=== PATIENT | female | born 1955 | race African-American/Black ===

== ENCOUNTER → 2017-04-10 | Outpatient (CLI) | payer OTHER ==
--- NOTE | ~2017-04-10 | MY29 ---
[facility] A Service of [facility] RADIOLOGY TEXT RESULTS PATIENT: EMILEE GASTON LOCATION: [facility] : 57 UNIT #: [id number] AGE: [address]: ANN EDGAR APRN SEX: F ORDER DR: [id number] [facility] [address] [place], [place] [address] [id number] O MR#: [id number] Acc #: [id number] NAME: EMILEE GASTON : 1955 SEX: F STUDY DATE/TIME: 04/10/2017 8:34 UNIT: [facility] ROOM: STUDY DESCRIPTION: MY [facility] SCREENING W/ CAD BILAT Attending Physician: Ann Edgar Aprn Referring Physician: Ann Edgar Aprn Ordering Physician: Ann Edgar Aprn Primary Care Physician: Ann Edgar Aprn MEDICAL IMAGING REPORT This report is preliminary unless electronic signature is present EXAM Digital screening mammogram, 04/10/2017 HISTORY 61-year-old woman no risk elevation. Previous stereotactic-guided right breast biopsy. Annual screening. COMPARISON Mammograms date to 06/22/2009 with most recent 02/08/2016. FINDINGS Digital imaging of each breast was completed utilizing screening protocol. Review includes FDA-approved CAD device. Breast parenchyma is fatty replaced. Stereotactic biopsy marker stable 12 o'clock axis middle third right breast. Tubular opacity projecting inner hemisphere left breast middle third is unchanged with benign characteristics. There is no interval occurring breast mass. There are no suspicious microcalcifications and no suspicious architectural deformity. Intramammary lymph node right breast is stable. IMPRESSION Stable benign mammogram. Annual screening recommended. Patients over the age of 40 are entered into a reminder system with target due date for the next mammogram. A result letter will also be sent to the patient. BIRADS: 2 Benign Finding Dictated by... Yousif Rose M.D. THIS IS AN ELECTRONICALLY VERIFIED REPORT [facility] A Service of [facility] RADIOLOGY TEXT RESULTS PATIENT: EMILEE GASTON LOCATION: [facility] : 57 UNIT #: [id number] AGE: [address]: ANN EDGAR APRN SEX: F ORDER DR: Yousif Rose M.D. at 04/10/2017 12:09 PM Jayla TD: 04/10/2017 11:04 JOB #: [id number] MEDICAL IMAGING REPORT Page 1 of 1 COPY
== END | disposition home or self-care (01) ==
LOC: CWCC 07:45
DX: Z12.31 Encounter for screening mammogram for malignant neoplasm of breast (principal); Z98.890 Other specified postprocedural states
CPT/HCPCS: G0202